=== PATIENT | female | born 1960 ===

== ENCOUNTER 2022-08-27 05:20 | Day surgery (SDC) | payer OTHER ==
[~2022-08-27] VITALS: Ht 160 cm; Wt 56.7 kg
[~2022-08-27 05:20] MED LIST: NORVASC2.5 M1; ZOCOR20 MG
[2022-08-27] MEDS ORDERED: IBU600 MG PO (08:16)
== END 2022-08-27 12:35 | disposition home or self-care (01) ==
LOC: CIR.AMB 05:20
PROVIDERS: ATTEND Obstetrics & Gynecology Gynecology
DX: N84.0 Polyp of corpus uteri (principal); Z20.822 Contact with and (suspected) exposure to COVID-19; Z88.8 Allergy status to other drugs, medicaments and biological substances; I10 Essential (primary) hypertension; E78.5 Hyperlipidemia, unspecified; Z86.16 Personal history of COVID-19